=== PATIENT | female | born 1975 | race Caucasian/White ===

== ENCOUNTER 2018-04-22 01:15 | Emergency (ER) | payer MEDICAID ==
[2018-04-22] MEDS ORDERED: KETOROLAC 30 MG/ML VIAL ONE (02:14)
[2018-04-22] MEDS ORDERED: HYDROcodone/APAP 5/325 MG 1 TAB TAB ONE (02:15)
== END 2018-04-22 02:40 | disposition home or self-care (01) ==
LOC: MED 01:15
DX: K08.89 Other specified disorders of teeth and supporting structures (principal)
CPT/HCPCS: 99283; J1885; 99281

== ENCOUNTER 2018-07-27 17:08 | Emergency (ER) | payer MEDICAID ==
[~2018-07-27] VITALS: Ht 160 cm; Wt 119.7 kg
[2018-07-27 18:14] VITALS: BP 152/87
--- NOTE | 2018-07-27 18:18 | NUR ---
PATIENT TAKEN TO LOBBY. NO BED AVAIL. AT THIS TIME. NO DISTRESS
--- NOTE | 2018-07-27 18:46 | NUR ---
PT AMBULATED TO BED 09.
[2018-07-27] MEDS ORDERED: KETOROLAC 30 MG/ML VIAL IM ONE (19:40)
--- NOTE | 2018-07-27 19:40 | NUR ---
42/F BIB SELF, C/O OF COUGH AND SORE THROAT X3 DAYS. PATIENT STATES SORE THROAT IS 8/10 INTERMITTENT WITH COUGH, WITH OCCASIONAL BODY ACHES. BREATHING IS EVEN AND UNLABORED, DENIES SOB OR CP. PATIENT DENIES ABDOMINAL PAIN OR N/V/D, BUT REPORTS LACK OF APPETITE. PATIENT IS AOX4, CLEAR SPEECH, STEADY GAIT. MD MADE AWARE, WILL CONTINUE TO MONITOR.
--- NOTE | 2018-07-27 20:17 | NUR ---
INFLUENZA SWAB TAKEN TO LAB.
[2018-07-27 21:35] VITALS: BP 127/74
--- NOTE | 2018-07-27 21:35 | NUR ---
Patient discharged with v/s stable. Written and verbal after care instructions given and explained. Patient alert, oriented and verbalized understanding of instructions. Ambulatory with steady gait. All questions addressed prior to discharge. ID band removed. Patient advised to follow up with PMD. Rx of Z-Pack, Robitussin AC, and Naproxen given. Patient educated on indication of medication including possible reaction and side effects. Opportunity to ask questions provided and answered.
== END 2018-07-27 21:35 | disposition home or self-care (01) ==
LOC: MED 17:08
DX: J06.9 Acute upper respiratory infection, unspecified (principal)
CPT/HCPCS: 36415; 87804; 96372; 99283; J1885

== ENCOUNTER 2023-09-09 22:06 | Emergency (ER) | payer MEDICAID, OTHER ==
[~2023-09-09] VITALS: Ht 162.6 cm; Wt 119.3 kg
[2023-09-09 22:09] VITALS: BP 154/87; PULSE 134; RESP 20; TEMP 100.2; O2SAT 96
[2023-09-09] MEDS: NACL 0.9% 1,000 ML IV ONE (23:01)
[2023-09-09] MEDS: KETOROLAC 30 MG/ML VIAL IVP ONE (23:50)
[2023-09-09] MEDS ORDERED: KETOROLAC 30 MG/ML VIAL ONE (23:52)
[2023-09-10 00:58] VITALS: BP 128/79; PULSE 113; RESP 14; TEMP 99.1; O2SAT 98
[2023-09-10] MEDS ORDERED: CIPR500T4 PO (01:02)
[2023-09-10] MEDS ORDERED: IBUP-2213 PO (01:02)
== END 2023-09-10 01:26 | disposition home or self-care (01) ==
LOC: MED 22:06
DX: N39.0 Urinary tract infection, site not specified (principal); M54.50 Low back pain, unspecified
CPT/HCPCS: 81002; 81025; 96361; 96374; 99283; J1885; J7030

== ENCOUNTER 2024-02-19 09:37 | Emergency (ER) | payer OTHER ==
[~2024-02-19] VITALS: Ht 160 cm; Wt 131.8 kg
[~2024-02-19 09:37] MED LIST: CIPR500T4 PO; IBUP-2213 PO
[2024-02-19 09:43] VITALS: BP 154/93; PULSE 89; RESP 17; TEMP 98.2; O2SAT 97
--- NOTE | 2024-02-19 09:48 | NUR ---
PT AMB TO BED 3
--- NOTE | 2024-02-19 09:56 | NUR ---
NUNU LY AT BEDSIDE FOR PT EVALUATION
[2024-02-19] MEDS ORDERED: CETI10TA81 PO (10:07)
[2024-02-19] MEDS ORDERED: HYD1C TP (10:07)
--- NOTE | 2024-02-19 10:37 | NUR ---
Patient discharged with v/s stable. Written and verbal after care instructions given and explained. Patient alert, oriented and verbalized understanding of instructions. Ambulatory with steady gait. All questions addressed prior to discharge. ID band removed. Patient advised to follow up with PMD. Rx of HYDROCORTISONE CREAM, ZYTREC given. Patient educated on indication of medication including possible reaction and side effects. Opportunity to ask questions provided and answered.
[2024-02-19 10:38] VITALS: BP 154/93; PULSE 89; RESP 17; TEMP 98.2; O2SAT 97
== END 2024-02-19 10:37 | disposition home or self-care (01) ==
LOC: MED 09:37
DX: S30.861A Insect bite (nonvenomous) of abdominal wall, initial encounter (principal); Z79.899 Other long term (current) drug therapy; W57.XXXA Bitten or stung by nonvenomous insect and other nonvenomous arthropods, initial encounter; Y92.89 Other specified places as the place of occurrence of the external cause; Y93.89 Activity, other specified; Y99.8 Other external cause status
CPT/HCPCS: 99282